=== PATIENT | female | born 1935 | race Caucasian/White ===

== ENCOUNTER 2017-07-24 21:33 | Emergency (ER) | payer MEDICARE, BC ==
--- NOTE | 2017-07-24 22:03 | RAD ---
PORTABLE CHEST: 07/24/17 HISTORY: Weakness. COMPARISON: 07/30/16. Cardiomegaly. Mild vascular engorgement. No confluent infiltrate or consolidation. There may be small effusions present. IMPRESSION: Cardiomegaly and mild vascular congestion. POS: [facility]
[2017-07-24 22:05] LABS: #Lymphocytes 1.4 thou/uL (1.20-3.40); #Monocytes 0.8 thou/uL (0.11-0.59); #Neutrophils 7.9 thou/uL (1.40-6.50); %Basophils 0.1 % (0.0-1.0); %Eosinophils 0.3 % (0.0-10.0); %Lymphocytes 13.7 % (21.0-51.0); %Monocytes 7.6 % (0.0-10.0); %Neutrophils 78.3 % (42.0-75.0); Hemoglobin 10.4 g/dL (12.0-16.0); Mean Corpuscular Hemoglobin 33.2 pg (27.0-31.0); Mean Platelet Volume 7.4 fL (7.4-10.4); Platelet Count 383 thou/uL (130-400); RBC Distribution Width 12.3 % (11.5-14.5); Red Blood Cell (RBC) Count 3.13 mill/uL (4.20-5.40); White Blood Cell (WBC) Count 10.1 thou/uL (4.8-10.8)
[2017-07-24 22:31] LABS: ALT (SGPT) 16 U/L (8-55); AST (SGOT) 22 U/L (5-34); Albumin 3.5 g/dL (3.4-4.8); Alkaline Phosphatase 106 U/L (40-150); Anion Gap 17 mmol/L (10-20); BUN (Urea Nitrogen) 49 mg/dL (9.8-20.1); Bilirubin, Total 0.7 mg/dL (0.2-1.2); Calc. Creatinine Clearance 0 mL/min (70-130); Calcium 10.1 mg/dL (7.8-10.44); Carbon Dioxide 22 mmol/L (23-31); Chloride 104 mmol/L (98-107); Estimated GFR-MDRD 33; Globulin 4.3 g/dL (2.4-3.5); Glucose 111 mg/dL (83-110); Protein, Total 7.8 g/dL (6.0-8.3); Sodium 138 mmol/L (136-145)
[2017-07-24] MEDS ORDERED: Acetaminophen 500 MG TAB ONE (23:21)
[2017-07-24 23:38] LABS: Bilirubin Negative (Negative); Blood, Urine Large (Negative); Clarity CLOUDY (Clear); Glucose, Urine (Dipstick) Negative (Negative); Leukocyte Large (Negative); Nitrite Negative (Negative); Protein, Urine (Dipstick) Trace mg/dL (Neg-Trace); Specific Gravity, Urine 1.016 (1.002-1.036); Urobilinogen 0.2 mg/dL (0.2-1.0); pH, Urine 7.5 (5.0-9.0)
[2017-07-24 23:40] LABS: Bacteria/HPF 4+ HPF (None Seen); Hyaline Casts/LPF 4-6 HYALINE CAST LPF (0-3 Hyaline); Pathc Cast-AUWi Flag 0.13 (0-2.49); RBC/HPF 21-50 HPF (0-3); Squamous Epithelial None Seen HPF (0-3)
[2017-07-25] MEDS ORDERED: cefTRIAXone\\ROCEPHIN 2 GM in Sodium Chloride 0.9% 100 ML IVPB SCH (00:30)
--- NOTE | 2017-07-28 11:45 | EKG ---
Test Reason : AMS Blood Pressure : / mmHG Vent. Rate : 089 BPM Atrial Rate : 089 BPM P-R Int : 166 ms QRS Dur : 082 ms QT Int : 376 ms P-R-T Axes : 064 000 065 degrees QTc Int : 457 ms Sinus rhythm with frequent Premature ventricular complexes Minimal voltage criteria for LVH, may be normal variant Nonspecific ST abnormality Abnormal ECG Confirmed by ZULAY RODRIGUEZ, KERRI Casiano ([id number]), newspaper copy editor LAVINIA CORDOBA ([id number]) on 07/28/2017 11:44:30 AM Referred By: Confirmed By:KERRI BISWAS MD
== END 2017-07-25 02:07 | disposition home or self-care (01) ==
LOC: ERS 21:33
DX: N39.0 Urinary tract infection, site not specified (principal); I25.10 Atherosclerotic heart disease of native coronary artery without angina pectoris; E66.9 Obesity, unspecified; I11.0 Hypertensive heart disease with heart failure; I50.9 Heart failure, unspecified; E78.5 Hyperlipidemia, unspecified; F41.9 Anxiety disorder, unspecified; F32.9 Major depressive disorder, single episode, unspecified; Z79.899 Other long term (current) drug therapy; Z79.82 Long term (current) use of aspirin
CPT/HCPCS: 51701; 71045; 80053; 81003; 81015; 83605; 83880; 85025; 87040; 87077; 87086; 87186; 93005; 94760; 96361; 96365; A4353; J0696; J7050

== ENCOUNTER 2018-09-15 01:14 | Observation (INO) | payer MEDICARE, BC ==
[2018-09-15 01:57] LABS: #Eosinphils 0.4 thou/uL (0.0-0.7); #Lymphocytes 2.4 thou/uL (1.20-3.40); #Monocytes 0.6 thou/uL (0.11-0.59); #Neutrophils 2.8 thou/uL (1.40-6.50); %Basophils 0.5 % (0.0-1.0); %Eosinophils 6.2 % (0.0-10.0); %Lymphocytes 38.6 % (21.0-51.0); %Monocytes 10.3 % (0.0-10.0); %Neutrophils 44.4 % (42.0-75.0); Hemoglobin 12.5 g/dL (12.0-16.0); Mean Corpuscular HGB CONC 33.2 g/dL (32.0-36.0); Mean Corpuscular Hemoglobin 34.5 pg (27.0-31.0); Mean Platelet Volume 8.7 fL (7.4-10.4); Platelet Count 204 thou/uL (130-400); RBC Distribution Width 12.3 % (11.5-14.5); Red Blood Cell (RBC) Count 3.61 mill/uL (4.20-5.40); White Blood Cell (WBC) Count 6.2 thou/uL (4.8-10.8)
[2018-09-15 02:03] LABS: PTT 28.6 SEC (22.9-36.1)
[2018-09-15 02:10] LABS: INR-International Normal Ratio 1.3
[2018-09-15] MEDS ORDERED: Acetaminophen 500 MG TAB ONE (02:19)
[2018-09-15 02:20] LABS: ALT (SGPT) 10 U/L (8-55); AST (SGOT) 15 U/L (5-34); Albumin 3.8 g/dL (3.4-4.8); Alkaline Phosphatase 73 U/L (40-150); Anion Gap 15 mmol/L (10-20); BUN (Urea Nitrogen) 28 mg/dL (9.8-20.1); Bilirubin, Total 0.6 mg/dL (0.2-1.2); Calc. Creatinine Clearance 0 mL/min (70-130); Calcium 10.3 mg/dL (7.8-10.44); Carbon Dioxide 22 mmol/L (23-31); Chloride 112 mmol/L (98-107); Estimated GFR-MDRD 52; Globulin 3.3 g/dL (2.4-3.5); Glucose 117 mg/dL (83-110); Potassium 4.4 mmol/L (3.5-5.1); Protein, Total 7.1 g/dL (6.0-8.3); Sodium 145 mmol/L (136-145)
[2018-09-15] MEDS ORDERED: Morphine 2 MG/ML SYRINGE SLOW IVP PRN (03:59)
[2018-09-15] MEDS: traMADol HCl 50 MG TAB PO PRN ×2 (04:46→10:45)
[2018-09-15] MEDS: Levothyroxine Sodium 100 MCG TAB PO SCH (04:46)
--- NOTE | 2018-09-15 06:27 | HP ---
CHIEF COMPLAINT: Presyncope and head injury. HISTORY OF PRESENT ILLNESS: Ms. Tompkins is a very pleasant 83-year-old woman, who presents to the ED after having a fall. The patient states she was attempting to get out of bed. She mobilizes with a wheelchair but is able to transfer from the bed to the wheelchair by standing. The patient states she stood too quickly and felt disoriented/lightheaded, causing her to fall forward, hitting the left side of her face on the floor. She denies any loss of consciousness. Denies having any chest pain or shortness of breath prior to falling. She is on Eliquis and has developed a large hematoma over her left forehead and eyebrow that is very tender. The patient has had no vision disturbances. She has headache, which she rates at 7/10. She does suffer from headaches at baseline. Denies any visual or speech disturbances. No dizziness at present. Imaging done in the ER included a brain CT, pelvic x-ray, and CT of the pelvis. The patient states she did not experience any hip pain at any point, and per Dr. Burns, there is no evidence of a fracture on her scans. Final report pending. CT of the brain apparently may have shown a small area concerning for subdural hematoma; however, this was reviewed with Neuro and it appears was clear. She was advised a repeat CT scan within 6 hours. REVIEW OF SYSTEMS: The patient denies having any recent fevers, chills, or sweats. No cough or hemoptysis. No nausea or vomiting. No abdominal pain or cramping. No changes with her bowels or urinary symptoms. PAST MEDICAL HISTORY: 1. Obesity. 2. CHF. 3. Coronary artery disease. 4. Atrial fibrillation. 5. Hyperlipidemia. 6. Hypertension. 7. Anxiety. 8. Depression. PAST SURGICAL HISTORY: 1. Hernia repair. 2. Splenectomy. 3. Appendectomy. 4. Hysterectomy. SOCIAL HISTORY: The patient denies any heavy alcohol use. Denies any smoking or illicit drug use. ALLERGIES: 1. HYDROCODONE. 2. SULFA. CURRENT MEDICATIONS: 1. Eliquis. 2. Lasix. 3. Ranexa. 4. Allopurinol. 5. Aspirin. 6. Carvedilol. 7. Centrum Silver. 8. Fosamax. 9. Levothyroxine. 10. Pravastatin. 11. Sertraline. 12. Zolpidem. 13. Potassium chloride. 14. Macrobid. PHYSICAL EXAMINATION: GENERAL: The patient is in no acute distress. She is resting comfortably. HEENT: Notable for a large hematoma overlying the left forehead and extending to her eyebrow. Normal extraocular movements without any associated pain. No blurred vision or diplopia. Facial sensation normal. NECK: Supple. No cervical spine tenderness. CARDIAC: Regular rate and rhythm. LUNGS: Clear to auscultation. ABDOMEN: Soft, obese, nontender, nondistended. Normoactive bowel sounds present. No guarding or rigidity. EXTREMITIES: Lower leg swelling, which is chronic. No edema. SKIN: Warm and dry. LABORATORY DATA: White blood count 6.2, hemoglobin 12.5, hematocrit 37.6, and platelets 204. PT 16, INR 1.3, and PTT 28.6. Sodium 145, potassium 4.4, chloride 112, carbon dioxide 22, anion gap 15, BUN 28, creatinine 1.01, GFR 52, glucose 117, calcium 10.3, total bilirubin 0.6, AST 15, ALT 10, and albumin 3.8. IMAGING DATA: No reports available yet as mentioned above in HPI. IMPRESSION AND PLAN: Ms. Tompkins is a very pleasant 83-year-old woman, who is being admitted for management of the following; 1. Head injury. The patient on Eliquis. Had no loss of consciousness, but with a large hematoma over the left forehead/eyebrow. Per Dr. Burns, imaging reviewed with Neuro and no clear evidence of any hematoma. However, they did advise a repeat CT of brain within 6 hours of the first one. We will continue neuro checks every 2 hours. Neuro following. 2. Presyncope. The patient states that she became lightheaded, when she stood up to transfer to a wheelchair. She states this does tend to happen when she gets up too quickly. We will obtain orthostatic blood pressures. We will add on magnesium and thyroid with morning labs. We will obtain urinalysis. The patient has no other associated symptoms. Day Team to decide if any further investigations warranted. No neuro deficits or vertigo. 3. Hypothyroidism. Resume home medications. 4. Hypertension. Resume home medications and monitor blood pressure. 5. Hyperlipidemia. Resume home medications. 6. Congestive heart failure. Resume home medications. Add on a BNP. 7. Gastrointestinal prophylaxis. 8. Deep venous thrombosis prophylaxis with mechanical SCDs. 9. Full code status. The patient's case to be discussed with attending for further recommendations. Job ID: [id number]
--- NOTE | 2018-09-15 07:32 | CT ---
CT brain. HISTORY: Trauma with history of small focal area of intracranial hemorrhage. Noncontrast enhanced CT images of the brain is obtained on 09/15/2018. Comparison made to previous CT from earlier in the day. CT brain demonstrates a large left frontal and periorbital scalp hematoma. No evidence of acute intracranial masses hemorrhages or strokes seen. The tiny 3 mm area of hyperdensity compatible with tiny area of hemorrhage seen on previous CT axial image #19 is no longer visible. This likely subarachnoid area of hemorrhage may have dissipated. No evidence of increasing hemorrhage seen. No other acute intracranial abnormalities or contusion seen. No evidence of calvarial fracture seen. IMPRESSION: no evidence of significant active intracranial hemorrhage or abnormality seen.
--- NOTE | 2018-09-15 08:01 | CT ---
PRELIMINARY REPORT/[facility]/EMERGENCY AFTER HOURS PROCEDURE: EXAM: CT Head Without Contrast EXAM DATE/TIME: 09/15/2018 1:58 AM CLINICAL HISTORY: 83 years old, female; Injury or trauma; Fall; Initial encounter; Abrasion; Forehead; Patient HX: Er 3 . Fell forward out of wheelchair, hit head, denies loc TECHNIQUE: Imaging protocol: Axial computed tomography images of the head/brain without contrast. COMPARISON: No relevant prior studies available. FINDINGS: Brain: Volume loss and chronic small vessel ischemic change. There is what appears to be a 3 mm extra-axial hyperdensity at the anterior aspect of the left frontal lobe on image 19, series 2 which is most likely volume averaging subjacent to the left frontal skull which overlaps on image 20, series 2 . Without coronal/sagittal images, small extra-axial hemorrhage cannot be absolutely excluded but is unlikely. No brain edema. Ventricles: Normal. No ventriculomegaly. Bones/joints: Unremarkable. No acute fracture. Sinuses: Visualized sinuses are unremarkable. No acute sinusitis. Mastoid air cells: Visualized mastoid air cells are unremarkable. No mastoid effusion. Soft tissues: Large left frontal scalp hematoma. Other findings: Prior right mastectomy. IMPRESSION: There is what appears to be a 3 mm extra-axial hyperdensity at the anterior aspect of the left fronta l lobe on image 19, series 2 which is most likely volume averaging subjacent to the left frontal skull which overlaps on image 20, series 2. Without coronal/sagittal images, small extra-axial hemorrhage cannot be absolutely excluded but is unlikely. Thank you for allowing us to participate in the care of your patient. Dictated and Authenticated by: Eren Do MD 09/15/2018 2:15 AM Central Time ([place] & [place]) FINAL REPORT EMERGENCY AFTER HOURS CT BRAIN: HISTORY: Fall. FINDINGS/IMPRESSION: This is the final report. Preliminary exam was performed by [facility]. A large left periorbital hematoma seen. There is a tiny subarachnoid frontal area of hemorrhage axial image #19. This was not present on the patient's previous CT from 05/01/2014. No other acute abnormality seen. I concur with the dictation for [facility]. Transcribed Date/Time: 09/15/2018 8:23 AM
--- NOTE | 2018-09-15 08:11 | RAD ---
AP view pelvis. HISTORY: Fall. AP view pelvis is obtained. There is an aortic stent graft in place. The pelvis is unremarkable. No evidence of pelvic fractures, subluxations or bony lesions seen. IMPRESSION: Unremarkable AP view pelvis with no evidence of bony fracture seen.
--- NOTE | 2018-09-15 08:30 | CT ---
PRELIMINARY REPORT/[facility]/EMERGENCY AFTER HOURS PROCEDURE: EXAM: CT Pelvis Without Contrast, Skeletal EXAM DATE/TIME: 09/15/2018 2:43 AM CLINICAL HISTORY: 83 years old, female; Injury or trauma; Initial encounter; Abrasion; Bilateral; Hip; Patient HX: 83 y /o F presents to ED via EMS transport S/P fall. PT reports she fell when she was attempting to get to the bathroom TECHNIQUE: Imaging protocol: Axial computed tomography images of the pelvis without intravenous contrast. Exam focused on the skeletal structures. Coronal and sagittal reformatted images were created and reviewed. COMPARISON: No relevant prior studies available. FINDINGS: Stomach and bowel: Colonic diverticulosis. No diverticulitis. Appendix: Normal appendix. Reproductive: Prior hysterectomy. Bones/joints: No fracture. Soft tissues: Unremarkable. Other findings: Myositis ossifications adjacent to the right femoral head. IMPRESSION: No fracture. Thank you for allowing us to participate in the care of your patient. Dictated and Authenticated by: Eren Do MD 09/15/2018 3:10 AM Central Time ([place] & [place]) FINAL REPORT EMERGENCY AFTER HOURS CT PELVIS: This is the final report. Preliminary exam was performed by [facility]. FINDINGS: Aorto biiliac stents in place. Multilevel lumbar facet degenerative changes seen. No evidence of acut e pelvic fractures seen. Some areas of myositis ossificans seen medial and inferior to the right hip joint. IMPRESSION: No evidence of acute pelvic fractures. I concur with the dictation from [facility]. Transcribed Date/Time: 09/15/2018 8:34 AM
[2018-09-15] MEDS: Amiodarone 200 MG TAB PO SCH ×2 (08:36→20:52)
[2018-09-15] MEDS: Furosemide 40 MG TAB PO SCH (08:36)
[2018-09-15] MEDS: Allopurinol 100 MG TAB PO SCH (08:36)
[2018-09-15] MEDS: Sacubitril 49 MG/Valsartan 51 MG TABLET PO SCH ×2 (08:37→20:51)
[2018-09-15 12:09] LABS: Bilirubin Negative (Negative); Blood, Urine Negative (Negative); Clarity CLOUDY (Clear); Glucose, Urine (Dipstick) Negative (Negative); Leukocyte Small (Negative); Nitrite Positive (Negative); Protein, Urine (Dipstick) Negative (Neg-Trace); Specific Gravity, Urine 1.021 (1.002-1.036); Urobilinogen 0.2 mg/dL (0.2-1.0); pH, Urine 5.5 (5.0-9.0)
[2018-09-15 12:12] LABS: Bacteria/HPF 4+ HPF (None Seen); Hyaline Casts/LPF 0-3 HYALINE CAST LPF (0-3 Hyaline); Pathc Cast-AUWi Flag 0.16 (0-2.49); Squamous Epithelial 0-3 HPF (0-3); WBC/HPF 21-50 HPF (0-3)
[2018-09-15 12:17] LABS: Urine Culture Reflex Yes Yes
--- NOTE | 2018-09-15 12:41 | PRG ---
DATE OF SERVICE: 09/15/2018 SUBJECTIVE: This is a 30-minute initial visit note, in which 30 minutes were spent reviewing the imaging, record, evaluation, examination of the patient, formulation of plan. Greater than 50% time was spent in counseling on Sandi Tompkins. Ms. Tompkins is an 83-year-old woman, who fell. She is on aspirin and Eliquis. She sustained a traumatic subarachnoid hemorrhage. This improved on followup head CT. I have asked that she lay off her aspirin and Eliquis for the next two weeks. We will arrange a followup in my clinic with head CT. She is neurologically intact and has left-sided facial and periorbital ecchymoses, which will heal with time. DIAGNOSIS: Traumatic intracranial bleed status post fall on blood thinners. Job ID: [id number]
--- NOTE | 2018-09-15 13:15 | PDOC.PN ---
- Subjective Encounter Start Date: 09/15/18 Encounter Start Time: 13:05 Subjective: f/u for fall with head injury and traumatic subarachnoid hemorrhage -: conservatively managed. Repeat CT brain showing resolving hemorrhage. -: Feel tired and sore. No N/V. No unilateral weakness. - Objective MAR Reviewed: Yes Vital Signs & Weight: Vital Signs (12 hours) Temp Pulse Resp BP BP BP BP 09/15/18 11:59 179/79 H 182/103 H 163/72 H 09/15/18 11:26 97.6 F 54 L 18 09/15/18 07:46 97.6 F 63 18 166/68 H 09/15/18 03:46 97.3 F L 63 20 141/65 H Pulse Ox 09/15/18 11:59 09/15/18 11:26 94 L 09/15/18 07:46 95 09/15/18 03:46 96 Weight Weight 243 lb I&O: 09/14/18 09/15/18 09/16/18 06:59 06:59 06:59 Intake Total 100 Balance 100 Result Diagrams: 09/15/18 01:48 09/15/18 01:48 Additional Labs: Microbiology 07/09/16 05:06 Urine Straight Catheter Urine Culture - Preliminary Gram Negative Calderon Proteus species Laboratory Tests 07/09/16 07/09/16 07/10/16 03:29 03:29 05:05 Hgb 11.2 L Hct 33.1 L MCV 103.0 H BUN 59 H Creatinine 2.35 H Magnesium B-Natriuretic Peptide Vitamin B12 783 Folate 16.00 TSH 3rd Generation 09/15/18 09/15/18 09/15/18 01:48 01:48 01:48 Hgb Hct MCV BUN Creatinine Magnesium 2.0 B-Natriuretic Peptide 523.5 H Vitamin B12 Folate TSH 3rd Generation [phone] Radiology Reviewed by me: Yes (CT brain - resolving SAH) EKG Reviewed by me: Yes (Tele - SR) Phys Exam - Physical Examination Constitutional: NAD smiling, alert L periorbital ecchymosis, edema and with abrasion, laceration L forehead HEENT: PERRLA, sclera anicteric, oral pharynx no lesions Neck: no nodes, no JVD, supple, full ROM Respiratory: no wheezing, no rales, no rhonchi, clear to auscultation bilateral S1, S2 Cardiovascular: RRR, no significant murmur, no rub, gallop Gastrointestinal: soft, non-tender, no distention, positive bowel sounds Musculoskeletal: no edema, pulses present Neurological: normal sensation, moves all 4 limbs Psychiatric: A&O x 3 Skin: normal turgor, cap refill <2 seconds Dx/Plan (1) Subarachnoid hemorrhage Code(s): I60.9 - NONTRAUMATIC SUBARACHNOID HEMORRHAGE, UNSPECIFIED Status: Acute Comment: Resolving by repeat CT imagaing, avoid anticoagulation/ASA x 2 weeks (2) Closed head injury Code(s): S09.90XA - UNSPECIFIED INJURY OF HEAD, INITIAL ENCOUNTER Status: Acute Comment: Supportive mgmt, PT for mobilization (3) Fall Code(s): W19.XXXA - UNSPECIFIED FALL, INITIAL ENCOUNTER Status: Acute Comment: No LOC, PT for mobilization, ? 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
[2018-09-15] MEDS ORDERED: Cefdinir 300 MG CAP PO SCH (14:00)
[2018-09-15] MEDS: Cefdinir 300 MG CAP PO SCH (20:52)
[2018-09-15] MEDS ORDERED: Atorvastatin Calcium 20 MG TAB PO SCH (21:00)
[2018-09-15 23:54] VITALS: BMI 37.5
[2018-09-16] MEDS: traMADol HCl 50 MG TAB PO PRN (01:55)
[2018-09-16] MEDS: Levothyroxine Sodium 100 MCG TAB PO SCH (03:48)
[2018-09-16] MEDS: Cefdinir 300 MG CAP PO SCH (08:18)
[2018-09-16] MEDS: Amiodarone 200 MG TAB PO SCH (08:18)
[2018-09-16] MEDS: Sacubitril 49 MG/Valsartan 51 MG TABLET PO SCH (08:18)
[2018-09-16] MEDS: Furosemide 40 MG TAB PO SCH (08:18)
[2018-09-16] MEDS: Allopurinol 100 MG TAB PO SCH (08:18)
[2018-09-16 12:34] VITALS: TEMP 97.9
--- NOTE | 2018-09-17 06:01 | SS ---
DATE OF ADMISSION: 09/15/2018 DATE OF DISCHARGE: 09/16/2018 PRIMARY CARE PHYSICIAN: Dr. Obregon. SOAP DRIER OPERATOR: Dr. Robertson. PROCEDURES: The patient had a brain CT, which showed a large left periorbital hematoma, tiny subarachnoid frontal area hemorrhage, axial image #19. This is new from CT on 05/01/2014. No other acute abnormality is seen. The patient had a pelvis x-ray, unremarkable AP view of the pelvis with no evidence of bony fracture. CT pelvis showed [id number] stents in place, multilevel lumbar facet degenerative changes seen. No evidence of acute pelvic fractures. Some areas of myositis ossificans noted medial and inferior to the right hip joint. Subsequent brain CT 6 hours after the initial one shows no evidence of significant active intracranial hemorrhage or abnormality. The tiny area of hemorrhage was seen on previous CT scan, axial image #19, this number is no longer visible, likely subarachnoid area of hemorrhage may have dissipated. HOSPITAL COURSE: Ms. Tompkins is an 83-year-old female, who reported to the emergency room after having a fall. The patient states that she was trying to get up from her recliner. Reports that she does this particular maneuver several times per day, but this particular time she got up, tried to pivot to get into her wheelchair to go to the bathroom, fell backwards. She said the next thing she remembers was she was lying on the floor. She denies any loss of consciousness. Denies having any chest pain or shortness of breath prior to the fall. The patient is on Eliquis and has developed a large hematoma over her left forehead and eyebrow, which is very tender. Denies any visual disturbances. She does have a headache. CT findings as above. The patient was admitted for observation based on the small hemorrhage that was seen on the initial CT scan. The patient's home medications were held. Dr. Robertson saw the patient, asked that we hold her aspirin and Eliquis for the next 2 weeks. Follow up in his clinic for another head CT. Case Management arranged home health physical therapy for the patient. The patient was found to have UTI. The patient was started on Omnicef and was continued at discharge. Once home health arranged by Case Management, patient requested to go home. The patient was subsequently discharged. REVIEW OF SYSTEMS: The patient does report some mild facial pain on the left side, has significant bruising to the left side of her forehead. She denies any chest pain, shortness of breath, palpitations, or abdominal pain. All other systems are reviewed and are negative unless mentioned in the hospital course. PHYSICAL EXAMINATION: VITAL SIGNS: Temperature is 98, pulse is 66, respirations 16, the patient is 96% on room air, blood pressure is 148/67. CONSTITUTIONAL: The patient appears nontoxic. She is alert and oriented to person, place, and time. HEENT: Head, hematoma to the left frontal scalp. She has a hematoma noted to her left forehead, left eyelid is swollen. She has ecchymosis left forehead periorbital, some mild ecchymosis to the right periorbital area. Extraocular muscles are intact. ENT, mouth exam is normal. Mucous membranes are moist. NECK: Normal range of motion. Trachea is midline. RESPIRATORY: Breath sounds are clear. No wheezing. No rales. Chest movement is symmetrical. CARDIOVASCULAR: Regular heart rate and rhythm. Heart sounds are normal. ABDOMEN: Soft, nontender. EXTREMITIES: Upper extremity; motor strength is normal, sensation intact, radial pulses are normal. Lower extremity; normal range of motion, motor strength is normal, sensation intact, no edema is noted, pedal pulses equal bilaterally. NEUROLOGIC: The patient is oriented to person, place, and time. Speech is normal. SKIN: Ecchymosis and swelling to the left forehead, orbital area, left eyelid, otherwise normal, dry in color. DISCHARGE DIAGNOSES: 1. Subarachnoid hemorrhage, improving. 2. Closed head injury. 3. Fall. 4. Urinary tract infection. 5. Chronic kidney disease, stage 3. 6. Chronic anticoagulation. 7. Physical deconditioning. ALLERGIES: HYDROCODONE, SULFA. HOME MEDICATIONS: 1. Allopurinol 100 mg p.o. daily. 2. Amiodarone 200 mg p.o. b.i.d. 3. Lasix 40 mg p.o. daily. 4. Levothyroxine 100 mcg p.o. daily. 5. Multivitamins one tablet p.o. daily. 6. K-Dur 20 mEq p.o. daily. 7. Pravachol 80 mg p.o. h.s. 8. Ranexa 500 mg p.o. b.i.d. 9. Entresto one tab p.o. b.i.d. 10. Sertraline 50 mg p.o. daily. 11. We added on this visit cefdinir 300 mg p.o. b.i.d. x10 for 5 days worth. CONDITION: Patient condition is stable. DISPOSITION: The patient will be discharged home. Home health has been requested. FOLLOWUP: The patient should follow up with Dr. Obregon within 1 week, Dr. Robertson in the next 2 to 3 weeks. The patient should stop the Eliquis and the aspirin for 2 weeks and should follow up with Dr. Robertson to ensure the subarachnoid hemorrhage has completely resolved. Job ID: [id number]
[2018-09-18 06:51] VITALS: BP 144/68
== END 2018-09-16 15:52 | disposition home or self-care (01) ==
LOC: ERS 01:14 → 2SW 03:22
PROVIDERS: ADMIT Internal Medicine; ATTEND Internal Medicine
DX: S06.6X0A Traumatic subarachnoid hemorrhage without loss of consciousness, initial encounter (principal); R55 Syncope and collapse; I11.0 Hypertensive heart disease with heart failure; I50.9 Heart failure, unspecified; I25.10 Atherosclerotic heart disease of native coronary artery without angina pectoris; I48.91 Unspecified atrial fibrillation; E78.5 Hyperlipidemia, unspecified; E03.9 Hypothyroidism, unspecified; F41.9 Anxiety disorder, unspecified; F32.9 Major depressive disorder, single episode, unspecified; E66.9 Obesity, unspecified; N39.0 Urinary tract infection, site not specified; R53.81 Other malaise; Z68.37 Body mass index [BMI] 37.0-37.9, adult; Z88.2 Allergy status to sulfonamides; Z88.5 Allergy status to narcotic agent; Z87.01 Personal history of pneumonia (recurrent); Z79.82 Long term (current) use of aspirin; Z79.899 Other long term (current) drug therapy; W18.30XA Fall on same level, unspecified, initial encounter
CPT/HCPCS: 70450; 72170; 72192; 81001; 83735; 83880; 85610; 85730; 87077; 87086; 87186; 97139; 97530; 99285; G0378 ×2; 36415; 80053; 84443; 85025; J2270

== ENCOUNTER 2021-09-28 08:28 | Emergency (ER) | payer MEDICARE, BC ==
[2021-09-28] MEDS ORDERED: Acetaminophen 500 MG TAB ONE (09:17)
== END 2021-09-28 10:15 | disposition home or self-care (01) ==
LOC: ERS 08:28
DX: S92.334A Nondisplaced fracture of third metatarsal bone, right foot, initial encounter for closed fracture (principal); S80.01XA Contusion of right knee, initial encounter; W19.XXXA Unspecified fall, initial encounter; E66.9 Obesity, unspecified; I11.0 Hypertensive heart disease with heart failure; I50.9 Heart failure, unspecified; I25.10 Atherosclerotic heart disease of native coronary artery without angina pectoris; E78.5 Hyperlipidemia, unspecified; Z79.01 Long term (current) use of anticoagulants; Z79.899 Other long term (current) drug therapy
CPT/HCPCS: 93005

== ENCOUNTER 2021-09-29 10:10 | Inpatient (IN) | payer MEDICARE, BC ==
[2021-09-29] MEDS ORDERED: Ondansetron PF 4 MG/2 ML Vial ONE ×2 (12:28→18:48)
[2021-09-29] MEDS ORDERED: Fentanyl 100 MCG/2 ML VIAL ONE (13:35)
[2021-09-29 15:39] LABS: #Basophils 0.1 thou/uL (0.0-0.2); #Eosinphils 0.1 thou/uL (0.0-0.7); #Lymphocytes 1.9 thou/uL (1.20-3.40); #Monocytes 0.8 thou/uL (0.11-0.59); #Neutrophils 6.3 thou/uL (1.40-6.50); %Basophils 0.6 % (0.0-1.0); %Eosinophils 0.7 % (0.0-10.0); %Lymphocytes 21.1 % (21.0-51.0); %Monocytes 9.1 % (0.0-10.0); %Neutrophils 68.5 % (42.0-75.0); Hemoglobin 13.1 g/dL (12.0-16.0); Mean Corpuscular HGB CONC 31.9 g/dL (32.0-36.0); Mean Corpuscular Hemoglobin 35.3 pg (27.0-31.0); Platelet Count 251 thou/uL (130-400); RBC Distribution Width 12.3 % (11.5-14.5); Red Blood Cell (RBC) Count 3.71 mill/uL (4.20-5.40); White Blood Cell (WBC) Count 9.2 thou/uL (4.8-10.8)
[2021-09-29 15:52] LABS: MDiff Complete? YES; Macrocytosis MODERATE=16-30 cells (100X) (0-5/hpf); Platelet Morphology Comment Appears Adequate; Polychromasia SLIGHT = 2-3 cells (100X) (0-2/hpf); Target Cells SLIGHT = 2-5 cells (100X) (0-1/hpf)
[2021-09-29 16:00] LABS: ALT (SGPT) 11 U/L (8-55); AST (SGOT) 19 U/L (5-34); Albumin 3.7 g/dL (3.4-4.8); Alkaline Phosphatase 77 U/L (40-110); Anion Gap 15 mmol/L (10-20); BUN (Urea Nitrogen) 17 mg/dL (9.8-20.1); Calc. Creatinine Clearance 0 mL/min (70-130); Calcium 10.4 mg/dL (7.8-10.44); Carbon Dioxide 21 mmol/L (23-31); Chloride 111 mmol/L (98-107); Globulin 3.6 g/dL (2.4-3.5); Glucose 105 mg/dL (83-110); Potassium 4.5 mmol/L (3.5-5.1); Protein, Total 7.3 g/dL (5.8-8.1); Sodium 142 mmol/L (136-145)
[2021-09-29] MEDS ORDERED: Morphine 4 MG/ML VIAL ONE (18:48)
[2021-09-29] MEDS ORDERED: Diltiazem HCl 125 MG in Premix Bag 1 BAG IVPB SCH (20:00)
[2021-09-29 23:27] VITALS: BMI 35.4
[2021-09-29] MEDS ORDERED: Morphine 4 MG/ML VIAL SLOW IVP PRN (23:39)
[2021-09-29] MEDS ORDERED: Ondansetron ODT 4 MG TAB SL PRN (23:45)
[2021-09-29] MEDS ORDERED: Ondansetron PF 4 MG/2 ML Vial IVP PRN (23:45)
[2021-09-29] MEDS ORDERED: Fentanyl 100 MCG/2 ML VIAL SLOW IVP SCH (23:45)
[2021-09-29] MEDS ORDERED: Acetaminophen 325 MG TAB PO PRN (23:45)
[2021-09-30] MEDS ORDERED: Nitroglycerin 0.4 MG TAB (25 Tab Bottle) SL PRN (02:25)
[2021-09-30 04:18] LABS: Cardiac Risk 3.6 (Less than 4.5)
[2021-09-30] MEDS: Levothyroxine Sodium 100 MCG TAB PO SCH (05:29)
[2021-09-30] MEDS: Allopurinol 100 MG TAB PO SCH (07:35)
[2021-09-30] MEDS: Carvedilol 6.25 MG TAB PO SCH ×2 (07:36→21:26)
[2021-09-30] MEDS: Furosemide 40 MG TAB PO SCH (07:36)
[2021-09-30] MEDS ORDERED: Fentanyl 100 MCG/2 ML VIAL SLOW IVP PRN (09:22)
[2021-09-30] MEDS: traMADol HCl 50 MG TAB PO PRN ×2 (09:59→19:45)
[2021-09-30] MEDS: Empagliflozin 25 MG TAB PO SCH (09:59)
[2021-09-30] MEDS: cycloSPORINE 0.05% Ophthalmic Droperette EA EYE SCH ×2 (09:59→21:27)
[2021-09-30 11:59] LABS: SARS-CoV-2 PCR by NAA Not Detected (NotDetected)
[2021-09-30] MEDS ORDERED: Dextrose 50% Abboject 50 ML SYRINGE SLOW IVP PRN (14:27)
[2021-09-30] MEDS ORDERED: HumaLOG 300 UNITS/3 ML VIAL SC PRN (14:27)
[2021-09-30] MEDS ORDERED: Dextrose 5% in Water 1,000 ML IV PRN (14:27)
[2021-09-30] MEDS ORDERED: Rosuvastatin 10 MG TAB PO SCH (21:00)
[2021-09-30] MEDS: Sotalol HCl 80 MG TAB PO SCH (21:26)
[2021-09-30] MEDS: traZODone HCl 50 MG TAB PO SCH (21:26)
[2021-09-30] MEDS: Rosuvastatin 20 MG TAB PO SCH (21:26)
[2021-10-01 04:53] LABS: Free T4 (Free Thyroxine) 1.03 ng/dL (0.70-1.48); Thyroid Stimulating Hormone 1.3647 uIU/mL (0.35-4.94)
[2021-10-01] MEDS: Levothyroxine Sodium 100 MCG TAB PO SCH (05:22)
[2021-10-01] MEDS: traMADol HCl 50 MG TAB PO PRN ×2 (05:27→22:32)
[2021-10-01] MEDS: Carvedilol 6.25 MG TAB PO SCH ×2 (10:21→22:33)
[2021-10-01] MEDS: Furosemide 40 MG TAB PO SCH (10:21)
[2021-10-01] MEDS: Empagliflozin 25 MG TAB PO SCH (10:21)
[2021-10-01] MEDS: Allopurinol 100 MG TAB PO SCH (10:21)
[2021-10-01] MEDS: cycloSPORINE 0.05% Ophthalmic Droperette EA EYE SCH ×2 (10:21→22:36)
[2021-10-01] MEDS: Sotalol HCl 80 MG TAB PO SCH ×2 (10:22→22:34)
[2021-10-01] MEDS ORDERED: Furosemide 20 MG/2 ML VIAL SLOW IVP SCH (16:15)
[2021-10-01] MEDS ORDERED: Diltiazem 125 MG in Sodium Chloride 0.9% 100 ML IVPB SCH (16:30)
[2021-10-01] MEDS ORDERED: Bisacodyl 5 MG TAB PO SCH (17:15)
[2021-10-01] MEDS: Rosuvastatin 20 MG TAB PO SCH (22:33)
[2021-10-01] MEDS: traZODone HCl 50 MG TAB PO SCH (22:35)
[2021-10-02 04:53] LABS: Hemoglobin 11.8 g/dL (12.0-16.0); Mean Corpuscular HGB CONC 32.3 g/dL (32.0-36.0); Mean Corpuscular Hemoglobin 34.8 pg (27.0-31.0); Platelet Count 240 thou/uL (130-400); RBC Distribution Width 12.2 % (11.5-14.5); Red Blood Cell (RBC) Count 3.38 mill/uL (4.20-5.40); White Blood Cell (WBC) Count 8.3 thou/uL (4.8-10.8)
[2021-10-02 04:58] LABS: Anion Gap 14 mmol/L (10-20); BUN (Urea Nitrogen) 25 mg/dL (9.8-20.1); Calc. Creatinine Clearance 67 mL/min (70-130); Calcium 9.6 mg/dL (7.8-10.44); Carbon Dioxide 24 mmol/L (23-31); Chloride 104 mmol/L (98-107); Glucose 105 mg/dL (83-110); Potassium 3.5 mmol/L (3.5-5.1); Sodium 138 mmol/L (136-145)
[2021-10-02 05:59] LABS: Eosinophils 4 % (0-10); Lymphocytes 19 % (21-51); MDiff Complete? YES; Macrocytosis SLIGHT = 6-15 cells (100X) (0-5/hpf); Monocytes 17 % (0-10); Neutrophil 60 % (42-75)
[2021-10-02] MEDS: traMADol HCl 50 MG TAB PO PRN (06:10)
[2021-10-02] MEDS: Levothyroxine Sodium 100 MCG TAB PO SCH (06:11)
[2021-10-02] MEDS: Carvedilol 6.25 MG TAB PO SCH ×2 (09:25→21:42)
[2021-10-02] MEDS: Furosemide 40 MG TAB PO SCH (09:25)
[2021-10-02] MEDS: Empagliflozin 25 MG TAB PO SCH (09:25)
[2021-10-02] MEDS: Sotalol HCl 80 MG TAB PO SCH ×2 (09:25→21:41)
[2021-10-02] MEDS: Allopurinol 100 MG TAB PO SCH (09:26)
[2021-10-02] MEDS: cycloSPORINE 0.05% Ophthalmic Droperette EA EYE SCH ×2 (10:06→21:56)
[2021-10-02] MEDS ORDERED: Ondansetron PF 4 MG/2 ML Vial IVP SCH (10:15)
[2021-10-02] MEDS: Bisacodyl 5 MG TAB PO PRN (18:37)
[2021-10-02] MEDS: traZODone HCl 50 MG TAB PO SCH (21:32)
[2021-10-02] MEDS: Rosuvastatin 20 MG TAB PO SCH (21:32)
[2021-10-03] MEDS: Levothyroxine Sodium 100 MCG TAB PO SCH (06:50)
[2021-10-03] MEDS: Carvedilol 6.25 MG TAB PO SCH ×2 (11:06→22:09)
[2021-10-03] MEDS: Allopurinol 100 MG TAB PO SCH (11:06)
[2021-10-03] MEDS: Empagliflozin 25 MG TAB PO SCH (11:06)
[2021-10-03] MEDS: cycloSPORINE 0.05% Ophthalmic Droperette EA EYE SCH ×2 (11:07→23:55)
[2021-10-03] MEDS: Sotalol HCl 80 MG TAB PO SCH ×2 (11:07→22:05)
[2021-10-03] MEDS: Furosemide 40 MG TAB PO SCH (11:07)
[2021-10-03] MEDS: Rosuvastatin 20 MG TAB PO SCH (22:43)
[2021-10-03] MEDS: traMADol HCl 50 MG TAB PO PRN (22:46)
[2021-10-03] MEDS: traZODone HCl 50 MG TAB PO SCH (22:50)
[2021-10-04] MEDS: Levothyroxine Sodium 100 MCG TAB PO SCH (06:43)
[2021-10-04] MEDS: Empagliflozin 25 MG TAB PO SCH (08:43)
[2021-10-04] MEDS: Sotalol HCl 80 MG TAB PO SCH ×2 (08:43→20:45)
[2021-10-04] MEDS: Carvedilol 6.25 MG TAB PO SCH ×2 (08:44→20:45)
[2021-10-04] MEDS: Allopurinol 100 MG TAB PO SCH (08:44)
[2021-10-04] MEDS: Furosemide 40 MG TAB PO SCH (08:44)
[2021-10-04] MEDS: cycloSPORINE 0.05% Ophthalmic Droperette EA EYE SCH ×2 (08:47→20:44)
[2021-10-04] MEDS: Bisacodyl 5 MG TAB PO PRN (08:55)
[2021-10-04] MEDS ORDERED: Ondansetron ODT 4 MG TAB PO PRN (14:47)
[2021-10-04] MEDS ORDERED: Polyethylene Glycol 3350 17 GM Packet PO SCH (15:00)
[2021-10-04] MEDS: Rosuvastatin 20 MG TAB PO SCH (20:44)
[2021-10-04] MEDS: traZODone HCl 50 MG TAB PO SCH (20:44)
[2021-10-05] MEDS: Levothyroxine Sodium 100 MCG TAB PO SCH (05:38)
[2021-10-05 07:01] LABS: Anion Gap 14 mmol/L (10-20); BUN (Urea Nitrogen) 40 mg/dL (9.8-20.1); Calc. Creatinine Clearance 54 mL/min (70-130); Calcium 9.8 mg/dL (7.8-10.44); Carbon Dioxide 27 mmol/L (23-31); Chloride 100 mmol/L (98-107); Glucose 88 mg/dL (83-110); Potassium 3.9 mmol/L (3.5-5.1); Sodium 137 mmol/L (136-145)
[2021-10-05 07:47] LABS: #Eosinphils 0.3 thou/uL (0.0-0.7); #Lymphocytes 1.3 thou/uL (1.20-3.40); #Monocytes 1.1 thou/uL (0.11-0.59); #Neutrophils 6.6 thou/uL (1.40-6.50); %Basophils 0.4 % (0.0-1.0); %Eosinophils 3.3 % (0.0-10.0); %Lymphocytes 14.3 % (21.0-51.0); %Monocytes 11.2 % (0.0-10.0); %Neutrophils 70.8 % (42.0-75.0); Hemoglobin 11.9 g/dL (12.0-16.0); MDiff Complete? YES; Macrocytosis SLIGHT = 6-15 cells (100X) (0-5/hpf); Mean Corpuscular HGB CONC 32.7 g/dL (32.0-36.0); Mean Platelet Volume 7.7 fL (7.4-10.4); Platelet Count 260 thou/uL (130-400); Platelet Morphology Comment Appears Adequate; Polychromasia SLIGHT = 2-3 cells (100X) (0-2/hpf); RBC Distribution Width 11.9 % (11.5-14.5); White Blood Cell (WBC) Count 9.3 thou/uL (4.8-10.8)
[2021-10-05] MEDS: Allopurinol 100 MG TAB PO SCH (08:42)
[2021-10-05] MEDS: Carvedilol 6.25 MG TAB PO SCH ×2 (08:43→20:15)
[2021-10-05] MEDS: Polyethylene Glycol 3350 17 GM Packet PO SCH (08:43)
[2021-10-05] MEDS: Empagliflozin 25 MG TAB PO SCH (08:43)
[2021-10-05] MEDS: cycloSPORINE 0.05% Ophthalmic Droperette EA EYE SCH ×2 (08:44→20:15)
[2021-10-05] MEDS ORDERED: Lactated Ringer's 500 ML IV SCH (08:45)
[2021-10-05] MEDS: Sotalol HCl 80 MG TAB PO SCH ×2 (08:45→20:16)
[2021-10-05] MEDS: Lactated Ringer's 1,000 ML IV SCH ×2 (18:24→20:14)
[2021-10-05] MEDS: Rosuvastatin 20 MG TAB PO SCH (20:15)
[2021-10-05] MEDS: traZODone HCl 50 MG TAB PO SCH (20:15)
[2021-10-05 20:44] VITALS: TEMP 97.9
[2021-10-06] MEDS: Levothyroxine Sodium 100 MCG TAB PO SCH (05:58)
[2021-10-06 06:54] LABS: #Eosinphils 0.3 thou/uL (0.0-0.7); #Lymphocytes 1.6 thou/uL (1.20-3.40); #Neutrophils 4.5 thou/uL (1.40-6.50); %Basophils 0.2 % (0.0-1.0); %Eosinophils 3.6 % (0.0-10.0); %Lymphocytes 21.4 % (21.0-51.0); %Monocytes 13.7 % (0.0-10.0); %Neutrophils 61.1 % (42.0-75.0); Hemoglobin 11.3 g/dL (12.0-16.0); Mean Corpuscular HGB CONC 32.2 g/dL (32.0-36.0); Mean Corpuscular Hemoglobin 34.5 pg (27.0-31.0); Mean Platelet Volume 7.5 fL (7.4-10.4); Platelet Count 269 thou/uL (130-400); RBC Distribution Width 11.9 % (11.5-14.5); Red Blood Cell (RBC) Count 3.26 mill/uL (4.20-5.40); White Blood Cell (WBC) Count 7.3 thou/uL (4.8-10.8)
[2021-10-06 07:15] LABS: Anion Gap 13 mmol/L (10-20); BUN (Urea Nitrogen) 30 mg/dL (9.8-20.1); Calc. Creatinine Clearance 70 mL/min (70-130); Calcium 9.6 mg/dL (7.8-10.44); Carbon Dioxide 26 mmol/L (23-31); Chloride 104 mmol/L (98-107); Glucose 93 mg/dL (83-110); Potassium 3.7 mmol/L (3.5-5.1); Sodium 139 mmol/L (136-145)
[2021-10-06 08:25] VITALS: BP 106/70
[2021-10-06] MEDS: Carvedilol 6.25 MG TAB PO SCH (09:17)
[2021-10-06] MEDS: Sotalol HCl 80 MG TAB PO SCH (09:18)
[2021-10-06] MEDS: Allopurinol 100 MG TAB PO SCH (09:19)
[2021-10-06] MEDS: Polyethylene Glycol 3350 17 GM Packet PO SCH (09:19)
[2021-10-06] MEDS: Empagliflozin 25 MG TAB PO SCH (09:19)
[2021-10-06] MEDS: cycloSPORINE 0.05% Ophthalmic Droperette EA EYE SCH (09:20)
[2021-10-06] MEDS ORDERED: Polyethylene Glycol 3350 17 GM Packet PO PRN (10:33)
[2021-10-06] MEDS ORDERED: Glycerin Adult Supp. (24 ct jar) PR SCH (10:45)
[2021-10-06] MEDS: traMADol HCl 50 MG TAB PO PRN (12:11)
[2021-10-07] MEDS ORDERED: Polyethylene Glycol 3350 17 GM Packet PO SCH (09:00)
== END 2021-10-06 14:07 | DRG 563 ==
LOC: ERS 10:10 → 2NO 19:25 → OBSVTOIN 09-30 09:23 → T4-B 10-03 20:07
PROVIDERS: ADMIT Internal Medicine; ATTEND Hospitalist
DX: S82.844A Nondisplaced bimalleolar fracture of right lower leg, initial encounter for closed fracture (principal); I50.22 Chronic systolic (congestive) heart failure; N17.9 Acute kidney failure, unspecified; I48.91 Unspecified atrial fibrillation; Z66 Do not resuscitate; Z20.822 Contact with and (suspected) exposure to COVID-19; S92.334A Nondisplaced fracture of third metatarsal bone, right foot, initial encounter for closed fracture; E03.9 Hypothyroidism, unspecified; E78.5 Hyperlipidemia, unspecified; I11.0 Hypertensive heart disease with heart failure; E66.9 Obesity, unspecified; E11.9 Type 2 diabetes mellitus without complications; M10.9 Gout, unspecified; F41.9 Anxiety disorder, unspecified; F32.A Depression, unspecified; I25.10 Atherosclerotic heart disease of native coronary artery without angina pectoris; W05.0XXA Fall from non-moving wheelchair, initial encounter; R29.6 Repeated falls; E86.0 Dehydration; R09.02 Hypoxemia; Z88.6 Allergy status to analgesic agent; Z88.2 Allergy status to sulfonamides; Z68.35 Body mass index [BMI] 35.0-35.9, adult; Z79.899 Other long term (current) drug therapy; Z79.890 Hormone replacement therapy; Z79.01 Long term (current) use of anticoagulants; Z90.710 Acquired absence of both cervix and uterus; Z98.890 Other specified postprocedural states; Z82.49 Family history of ischemic heart disease and other diseases of the circulatory system; Z90.81 Acquired absence of spleen; Z90.49 Acquired absence of other specified parts of digestive tract; Z99.3 Dependence on wheelchair; Z91.81 History of falling; Z95.5 Presence of coronary angioplasty implant and graft
CPT/HCPCS: 36415; 36416; 71045; 80048; 80053; 80061; 84439; 84443; 84481; 84484; 85025; 93005; 93306; 94760; 96365; 96375; 96376; J1940; J2270; J2405; J3010; J7120; Q0162; U0003; U0005

== ENCOUNTER 2022-06-20 09:07 | Inpatient (IN) | payer MEDICARE, BC ==
[2022-06-20 10:17] LABS: #Basophils 0.1 thou/uL (0.0-0.2); #Eosinphils 0.3 thou/uL (0.0-0.7); #Lymphocytes 2.8 thou/uL (1.20-3.40); #Monocytes 0.6 thou/uL (0.11-0.59); #Neutrophils 2.5 thou/uL (1.40-6.50); %Basophils 0.8 % (0.0-1.0); %Eosinophils 4.7 % (0.0-10.0); %Lymphocytes 44.5 % (21.0-51.0); %Monocytes 10.1 % (0.0-10.0); %Neutrophils 39.9 % (42.0-75.0); Mean Corpuscular HGB CONC 32.9 g/dL (32.0-36.0); Mean Corpuscular Hemoglobin 36.2 pg (27.0-31.0); Mean Platelet Volume 8.1 fL (7.4-10.4); Platelet Count 230 10x3/uL (130-400); RBC Distribution Width 12.5 % (11.5-14.5); White Blood Cell (WBC) Count 6.3 10x3/uL (4.8-10.8)
[2022-06-20 10:19] LABS: ALT (SGPT) 16 U/L (8-55); AST (SGOT) 21 U/L (5-34); Albumin 3.6 g/dL (3.4-4.8); Alkaline Phosphatase 59 U/L (40-110); Anion Gap 11 mmol/L (10-20); BUN (Urea Nitrogen) 38 mg/dL (9.8-20.1); Bilirubin, Total 1.2 mg/dL (0.2-1.2); Calc. Creatinine Clearance 0 mL/min (70-130); Calcium 9.9 mg/dL (7.8-10.44); Carbon Dioxide 26 mmol/L (23-31); Chloride 107 mmol/L (98-107); Estimated GFR 52; Globulin 2.7 g/dL (2.4-3.5); Glucose 110 mg/dL (83-110); Potassium 4.2 mmol/L (3.5-5.1); Protein, Total 6.3 g/dL (5.8-8.1); Sodium 140 mmol/L (136-145)
[2022-06-20 11:02] LABS: MDiff Complete? YES; Macrocytosis MODERATE=16-30 cells (100X) (0-5/hpf); Platelet Morphology Comment Appears Adequate; Polychromasia SLIGHT = 2-3 cells (100X) (0-2/hpf)
[2022-06-20] MEDS ORDERED: Nitroglycerin 0.4 MG TAB (25 Tab Bottle) SL PRN (12:16)
[2022-06-20] MEDS ORDERED: Acetaminophen 325 MG TAB PO PRN (12:17)
[2022-06-20 20:11] VITALS: BMI 32.1
[2022-06-20] MEDS ORDERED: Insulin Regular 300 UNITS/3 ML VIAL SC PRN ×3 (20:24)
[2022-06-20] MEDS ORDERED: Dextrose 50% Abboject 50 ML SYRINGE SLOW IVP PRN (20:24)
[2022-06-20] MEDS ORDERED: Dextrose 5% in Water 1,000 ML IV PRN (20:24)
[2022-06-20] MEDS: Apixaban 2.5 MG TAB PO SCH (21:13)
[2022-06-21 05:42] LABS: #Basophils 0.1 thou/uL (0.0-0.2); #Eosinphils 0.3 thou/uL (0.0-0.7); #Lymphocytes 2.4 thou/uL (1.20-3.40); #Monocytes 0.7 thou/uL (0.11-0.59); #Neutrophils 3.4 thou/uL (1.40-6.50); %Eosinophils 4.9 % (0.0-10.0); %Lymphocytes 34.7 % (21.0-51.0); %Monocytes 10.6 % (0.0-10.0); %Neutrophils 48.8 % (42.0-75.0); Hemoglobin 13.6 g/dL (12.0-16.0); Mean Corpuscular HGB CONC 33.5 g/dL (32.0-36.0); Mean Corpuscular Hemoglobin 36.5 pg (27.0-31.0); Mean Platelet Volume 7.9 fL (7.4-10.4); Platelet Count 217 10x3/uL (130-400); RBC Distribution Width 12.5 % (11.5-14.5); Red Blood Cell (RBC) Count 3.73 mill/uL (4.20-5.40); White Blood Cell (WBC) Count 6.9 10x3/uL (4.8-10.8)
[2022-06-21 06:05] LABS: Anion Gap 12 mmol/L (10-20); BUN (Urea Nitrogen) 34 mg/dL (9.8-20.1); Calc. Creatinine Clearance 65 mL/min (70-130); Calcium 10.4 mg/dL (7.8-10.44); Carbon Dioxide 23 mmol/L (23-31); Cardiac Risk 4.3 (Less than 4.5); Chloride 108 mmol/L (98-107); Cholesterol 153 mg/dl (< 200 Desired); Estimated GFR 63; Glucose 115 mg/dL (83-110); HDL Cholesterol 36 mg/dL (>60 Neg Risk); LDL Cholesterol, Calculated 91 mg/dL; Potassium 3.6 mmol/L (3.5-5.1); Sodium 139 mmol/L (136-145); Triglycerides 129 mg/dL (Less than 150)
[2022-06-21] MEDS: Levothyroxine Sodium 100 MCG TAB PO SCH (06:36)
[2022-06-21] MEDS: Apixaban 2.5 MG TAB PO SCH ×2 (08:16→20:36)
[2022-06-21] MEDS: Aspirin Chewable 81 MG TAB PO SCH (08:16)
[2022-06-21] MEDS ORDERED: Regadenoson 0.4 MG/5 ML SYRINGE ONE (09:03)
[2022-06-21] MEDS ORDERED: Polyethylene Glycol 3350 17 GM Packet PO PRN (14:10)
[2022-06-21] MEDS ORDERED: Bisacodyl 5 MG TAB PO PRN (14:10)
[2022-06-21] MEDS ORDERED: Artificial Tear Sol 15 ML BOT EA EYE PRN (15:06)
[2022-06-21] MEDS ORDERED: Potassium Chloride 20 MEQ TAB PO SCH (15:15)
[2022-06-21 15:19] LABS: Magnesium 2.2 mg/dL (1.6-2.6)
[2022-06-21] MEDS ORDERED: Magnesium 2 GM/50 ML(in water) 2 GM in Premix Bag 1 BAG IVPB SCH (15:30)
[2022-06-21] MEDS: Sotalol HCl 80 MG TAB PO SCH (20:36)
[2022-06-21] MEDS ORDERED: Rosuvastatin 20 MG TAB PO SCH (21:00)
[2022-06-22] MEDS: Levothyroxine Sodium 100 MCG TAB PO SCH (05:17)
[2022-06-22 05:50] LABS: Anion Gap 9 mmol/L (10-20); BUN (Urea Nitrogen) 31 mg/dL (9.8-20.1); Calc. Creatinine Clearance 66 mL/min (70-130); Calcium 10.3 mg/dL (7.8-10.44); Carbon Dioxide 22 mmol/L (23-31); Chloride 111 mmol/L (98-107); Estimated GFR 65; Glucose 91 mg/dL (83-110); Magnesium 2.2 mg/dL (1.6-2.6); Potassium 4.2 mmol/L (3.5-5.1); Sodium 138 mmol/L (136-145)
[2022-06-22] MEDS: Apixaban 2.5 MG TAB PO SCH (08:59)
[2022-06-22] MEDS: Aspirin Chewable 81 MG TAB PO SCH (08:59)
[2022-06-22] MEDS ORDERED: Allopurinol 100 MG TAB PO SCH (09:00)
[2022-06-22] MEDS ORDERED: Multivit, Therapeutic 1 TAB PO SCH (09:00)
[2022-06-22] MEDS ORDERED: Potassium Chloride 20 MEQ TAB PO SCH (09:00)
[2022-06-22] MEDS: Sotalol HCl 80 MG TAB PO SCH (09:00)
[2022-06-22] MEDS ORDERED: Empagliflozin 25 MG TAB PO SCH (09:00)
[2022-06-22 11:47] VITALS: BP 118/57; TEMP 97.4
== END 2022-06-22 13:39 | disposition home or self-care (01) | DRG 313 ==
LOC: ERS 09:07 → ERHOLD 11:42 → NEURO 19:38 → OBSVTOIN 06-21 16:12
PROVIDERS: ADMIT Internal Medicine; ATTEND Family Medicine
DX: R07.89 Other chest pain (principal); I47.20 Ventricular tachycardia, unspecified; I48.20 Chronic atrial fibrillation, unspecified; E78.5 Hyperlipidemia, unspecified; E03.9 Hypothyroidism, unspecified; E66.9 Obesity, unspecified; I50.9 Heart failure, unspecified; I25.10 Atherosclerotic heart disease of native coronary artery without angina pectoris; F32.A Depression, unspecified; F41.9 Anxiety disorder, unspecified; Z20.822 Contact with and (suspected) exposure to COVID-19; I11.0 Hypertensive heart disease with heart failure; Z88.2 Allergy status to sulfonamides; Z88.5 Allergy status to narcotic agent; Z79.899 Other long term (current) drug therapy; Z90.49 Acquired absence of other specified parts of digestive tract; Z90.710 Acquired absence of both cervix and uterus; Z90.81 Acquired absence of spleen; Z88.8 Allergy status to other drugs, medicaments and biological substances; Z79.01 Long term (current) use of anticoagulants; Z68.32 Body mass index [BMI] 32.0-32.9, adult
CPT/HCPCS: 36415; 70450; 71045; 78452; 80048; 80053; 80061; 83735; 84484; 85025; 93005; 93017; 94760; A9500; G0378; J2785; U0003; U0005

== ENCOUNTER 2022-07-01 09:58 | Inpatient (IN) | payer MEDICARE, BC ==
[2022-07-01] MEDS ORDERED: cefTRIAXone\\ROCEPHIN 2 GM VIAL ONE (10:48)
[2022-07-01] MEDS ORDERED: Azithromycin 250 MG TAB ONE (10:48)
[2022-07-01 11:06] LABS: #Eosinphils 0.1 thou/uL (0.0-0.7); #Lymphocytes 1.7 thou/uL (1.20-3.40); #Neutrophils 7.2 thou/uL (1.40-6.50); %Basophils 0.2 % (0.0-1.0); %Eosinophils 1.1 % (0.0-10.0); %Lymphocytes 17.3 % (21.0-51.0); %Monocytes 9.7 % (0.0-10.0); %Neutrophils 71.7 % (42.0-75.0); Hemoglobin 12.6 g/dL (12.0-16.0); Mean Corpuscular HGB CONC 32.3 g/dL (32.0-36.0); Mean Platelet Volume 8.6 fL (7.4-10.4); Platelet Count 208 10x3/uL (130-400); RBC Distribution Width 12.6 % (11.5-14.5); White Blood Cell (WBC) Count 10.1 10x3/uL (4.8-10.8)
[2022-07-01 11:22] LABS: INR-International Normal Ratio 1.4; PTT 29.1 sec (22.9-36.1); Prothrombin Time 17.8 sec (12.0-14.7)
[2022-07-01 11:28] LABS: ALT (SGPT) 36 U/L (8-55); AST (SGOT) 33 U/L (5-34); Albumin 3.4 g/dL (3.4-4.8); Alkaline Phosphatase 85 U/L (40-110); Anion Gap 14 mmol/L (10-20); BUN (Urea Nitrogen) 21 mg/dL (9.8-20.1); Bilirubin, Total 1.4 mg/dL (0.2-1.2); Calc. Creatinine Clearance 0 mL/min (70-130); Calcium 10.5 mg/dL (7.8-10.44); Carbon Dioxide 24 mmol/L (23-31); Chloride 110 mmol/L (98-107); Estimated GFR 74; Globulin 2.9 g/dL (2.4-3.5); Glucose 113 mg/dL (83-110); Magnesium 2.2 mg/dL (1.6-2.6); Potassium 4.5 mmol/L (3.5-5.1); Protein, Total 6.3 g/dL (5.8-8.1); Sodium 143 mmol/L (136-145)
[2022-07-01] MEDS ORDERED: Diltiazem 125 MG in Sodium Chloride 0.9% 100 ML IVPB SCH (12:15)
[2022-07-01] MEDS ORDERED: Diltiazem 125 MG/25 ML ONE (12:59)
[2022-07-01] MEDS ORDERED: Ondansetron PF 4 MG/2 ML Vial IVP PRN (13:54)
[2022-07-01 15:12] LABS: Troponin I 0.019 ng/mL (< 0.028)
[2022-07-01] MEDS ORDERED: Digoxin 0.5 MG/2 ML AMP ONE (15:12)
[2022-07-01 15:27] LABS: Free T4 (Free Thyroxine) 1.04 ng/dL (0.70-1.48); Thyroid Stimulating Hormone 1.4204 uIU/mL (0.35-4.94)
[2022-07-01 17:20] LABS: SARS-CoV-2 NAA Rapid Test Not Detected (NotDetected)
[2022-07-01 17:45] LABS: Legionella Urinary Ag Negative (Negative)
[2022-07-01] MEDS ORDERED: Acetaminophen 325 MG TAB ONE (18:02)
[2022-07-01] MEDS: Acetaminophen 325 MG TAB PO PRN (18:06)
[2022-07-01 18:28] LABS: Troponin I 0.012 ng/mL (< 0.028)
[2022-07-01 19:36] VITALS: BMI 31.4
[2022-07-02] MEDS: Levothyroxine Sodium 100 MCG TAB PO SCH (06:14)
[2022-07-02 06:43] LABS: Legionella Urinary Ag Negative (Negative); Strep pneumo Urine Ag NEGATIVE (NEGATIVE)
[2022-07-02] MEDS: Apixaban 5 MG TAB PO SCH ×2 (09:32→21:51)
[2022-07-02] MEDS: Acetaminophen 325 MG TAB PO PRN ×2 (10:33→21:51)
[2022-07-02] MEDS: cefTRIAXone\\ROCEPHIN 1 GM in Sodium Chloride 0.9% 100 ML IVPB SCH (11:21)
[2022-07-02] MEDS ORDERED: Pantoprazole 40 MG VIAL IVP SCH (11:30)
[2022-07-02] MEDS: Azithromycin 500 MG in Sodium Chloride 0.9% 250 ML 250 ML IVPB SCH (12:09)
[2022-07-03] MEDS: Levothyroxine Sodium 100 MCG TAB PO SCH (05:11)
[2022-07-03] MEDS ORDERED: Pantoprazole 40 MG VIAL IVP SCH (09:00)
[2022-07-03] MEDS: Apixaban 5 MG TAB PO SCH ×2 (09:34→20:28)
[2022-07-03] MEDS: Azithromycin 500 MG in Sodium Chloride 0.9% 250 ML 250 ML IVPB SCH (12:25)
[2022-07-03] MEDS: cefTRIAXone\\ROCEPHIN 1 GM in Sodium Chloride 0.9% 100 ML IVPB SCH (13:01)
[2022-07-03] MEDS ORDERED: Polyethylene Glycol 3350 17 GM Packet PO PRN (14:20)
[2022-07-03] MEDS ORDERED: Artificial Tear Sol 15 ML BOT EA EYE PRN (14:31)
[2022-07-03] MEDS: traZODone HCl 50 MG TAB PO SCH (20:28)
[2022-07-03] MEDS: Rosuvastatin 20 MG TAB PO SCH (20:28)
[2022-07-03] MEDS: Acetaminophen 325 MG TAB PO PRN (20:29)
[2022-07-04] MEDS: Levothyroxine Sodium 100 MCG TAB PO SCH (05:34)
[2022-07-04] MEDS: Acetaminophen 325 MG TAB PO PRN ×2 (07:14→18:15)
[2022-07-04] MEDS: Allopurinol 100 MG TAB PO SCH (08:45)
[2022-07-04] MEDS: Apixaban 5 MG TAB PO SCH (08:45)
[2022-07-04] MEDS: Sertraline 100 MG TAB PO SCH (08:45)
[2022-07-04] MEDS: Empagliflozin 25 MG TAB PO SCH (08:53)
[2022-07-04] MEDS: Azithromycin 500 MG in Sodium Chloride 0.9% 250 ML 250 ML IVPB SCH (12:23)
[2022-07-04] MEDS: cefTRIAXone\\ROCEPHIN 1 GM in Sodium Chloride 0.9% 100 ML IVPB SCH (12:23)
[2022-07-04] MEDS ORDERED: Communication Order-Pharmacy FS ONE (14:32)
[2022-07-04 15:05] LABS: Hemoglobin 12.1 g/dL (12.0-16.0); Platelet Count 205 10x3/uL (130-400)
[2022-07-04] MEDS: traZODone HCl 50 MG TAB PO SCH (20:29)
[2022-07-04] MEDS: Rosuvastatin 20 MG TAB PO SCH (20:29)
[2022-07-05] MEDS: Levothyroxine Sodium 100 MCG TAB PO SCH (05:17)
[2022-07-05] MEDS: Acetaminophen 325 MG TAB PO PRN ×2 (09:18→20:36)
[2022-07-05] MEDS: Allopurinol 100 MG TAB PO SCH (09:19)
[2022-07-05] MEDS: Empagliflozin 25 MG TAB PO SCH (09:19)
[2022-07-05] MEDS: Sertraline 100 MG TAB PO SCH (09:19)
[2022-07-05] MEDS: Azithromycin 500 MG in Sodium Chloride 0.9% 250 ML 250 ML IVPB SCH ×2 (11:37→12:37)
[2022-07-05] MEDS: cefTRIAXone\\ROCEPHIN 1 GM in Sodium Chloride 0.9% 100 ML IVPB SCH (12:38)
[2022-07-05] MEDS ORDERED: Cefdinir 300 MG CAP PO SCH (12:45)
[2022-07-05] MEDS: Azithromycin 250 MG TAB PO SCH (13:18)
[2022-07-05] MEDS: traZODone HCl 50 MG TAB PO SCH (20:36)
[2022-07-05] MEDS: Cefdinir 300 MG CAP PO SCH (20:36)
[2022-07-05] MEDS: Rosuvastatin 20 MG TAB PO SCH (20:36)
[2022-07-06] MEDS: Levothyroxine Sodium 100 MCG TAB PO SCH (05:55)
[2022-07-06] MEDS: Allopurinol 100 MG TAB PO SCH (10:05)
[2022-07-06] MEDS: Cefdinir 300 MG CAP PO SCH ×2 (10:06→21:14)
[2022-07-06] MEDS: Sertraline 100 MG TAB PO SCH (10:06)
[2022-07-06] MEDS: Empagliflozin 25 MG TAB PO SCH (10:06)
[2022-07-06] MEDS: Azithromycin 250 MG TAB PO SCH (13:15)
[2022-07-06] MEDS: Rosuvastatin 20 MG TAB PO SCH (21:14)
[2022-07-06] MEDS: traZODone HCl 50 MG TAB PO SCH (21:14)
[2022-07-06] MEDS: Acetaminophen 325 MG TAB PO PRN (21:15)
[2022-07-07 04:36] LABS: Hemoglobin 11.8 g/dL (12.0-16.0); Platelet Count 221 10x3/uL (130-400)
[2022-07-07 04:58] LABS: Anion Gap 9 mmol/L (10-20); BUN (Urea Nitrogen) 15 mg/dL (9.8-20.1); Calc. Creatinine Clearance 82 mL/min (70-130); Calcium 9.7 mg/dL (7.8-10.44); Carbon Dioxide 26 mmol/L (23-31); Chloride 110 mmol/L (98-107); Estimated GFR 83; Glucose 84 mg/dL (83-110); Potassium 3.8 mmol/L (3.5-5.1); Sodium 141 mmol/L (136-145)
[2022-07-07] MEDS: Levothyroxine Sodium 100 MCG TAB PO SCH (06:17)
[2022-07-07] MEDS ORDERED: Vancomycin 1.5 GRAM/300 ML BAG IVPB ONE (06:30)
[2022-07-07] MEDS ORDERED: Vancomycin 1.5 GRAM/300 ML BAG 1.5 GM in Premix Bag 1 BAG IVPB SCH (06:30)
[2022-07-07 07:04] LABS: SARS-CoV-2 NAA Rapid Test Not Detected (NotDetected)
[2022-07-07] MEDS: Empagliflozin 25 MG TAB PO SCH (08:14)
[2022-07-07] MEDS: Sertraline 100 MG TAB PO SCH (08:14)
[2022-07-07] MEDS: Allopurinol 100 MG TAB PO SCH (08:14)
[2022-07-07] MEDS ORDERED: Lidocaine 1% (PF) 30 ML VIAL ONE ×2 (09:32→13:04)
[2022-07-07] MEDS ORDERED: CEFAZOLIN 1 GM VIAL ONE (09:32)
[2022-07-07] MEDS ORDERED: Gentamicin 80 MG/2 ML VIAL ONE (09:32)
[2022-07-07] MEDS ORDERED: fentaNYL PF 100 MCG/2 ML SYRINGE ONE (10:13)
[2022-07-07] MEDS ORDERED: Dexmedetomidine 200 MCG/2 ML VIAL ONE (10:13)
[2022-07-07] MEDS ORDERED: Midazolam HCl 2 mg/2 ml Vial ONE (10:27)
[2022-07-07] MEDS ORDERED: Iopamidol 370 76% 100 ML VIAL ONE (12:23)
[2022-07-07] MEDS: Acetaminophen 325 MG TAB PO PRN (14:44)
[2022-07-07] MEDS: Rosuvastatin 20 MG TAB PO SCH (20:11)
[2022-07-07] MEDS: Sotalol HCl 80 MG TAB PO SCH (20:11)
[2022-07-07] MEDS: traZODone HCl 50 MG TAB PO SCH (20:11)
[2022-07-08] MEDS: Acetaminophen 325 MG TAB PO PRN ×4 (00:20→17:28)
[2022-07-08] MEDS: Levothyroxine Sodium 100 MCG TAB PO SCH (05:08)
[2022-07-08] MEDS: Sertraline 100 MG TAB PO SCH (09:31)
[2022-07-08] MEDS: Allopurinol 100 MG TAB PO SCH (09:31)
[2022-07-08] MEDS: Sotalol HCl 80 MG TAB PO SCH ×2 (09:40→20:27)
[2022-07-08] MEDS: Empagliflozin 25 MG TAB PO SCH (09:45)
[2022-07-08] MEDS: Rosuvastatin 20 MG TAB PO SCH (20:27)
[2022-07-08] MEDS: traZODone HCl 50 MG TAB PO SCH (20:28)
[2022-07-09] MEDS: Levothyroxine Sodium 100 MCG TAB PO SCH (05:28)
[2022-07-09] MEDS: Empagliflozin 25 MG TAB PO SCH (09:14)
[2022-07-09] MEDS: Allopurinol 100 MG TAB PO SCH (09:14)
[2022-07-09] MEDS: Sotalol HCl 80 MG TAB PO SCH ×2 (09:15→20:56)
[2022-07-09] MEDS: Sertraline 100 MG TAB PO SCH (09:15)
[2022-07-09] MEDS: Acetaminophen 325 MG TAB PO PRN ×2 (11:38→20:56)
[2022-07-09] MEDS: traZODone HCl 50 MG TAB PO SCH (20:56)
[2022-07-09] MEDS: Rosuvastatin 20 MG TAB PO SCH (20:57)
[2022-07-10 04:44] LABS: Hemoglobin 12.2 g/dL (12.0-16.0); Platelet Count 238 10x3/uL (130-400)
[2022-07-10] MEDS: Levothyroxine Sodium 100 MCG TAB PO SCH (06:07)
[2022-07-10] MEDS: Sertraline 100 MG TAB PO SCH (08:21)
[2022-07-10] MEDS: Sotalol HCl 80 MG TAB PO SCH (08:21)
[2022-07-10] MEDS: Empagliflozin 25 MG TAB PO SCH (08:21)
[2022-07-10] MEDS: Allopurinol 100 MG TAB PO SCH (08:21)
[2022-07-10 12:04] VITALS: BP 152/68; TEMP 97.5
== END 2022-07-10 15:27 | disposition home health service (06) | DRG 242 ==
LOC: ERS 09:58 → ERHOLD 13:58 → 2NO 19:14
PROVIDERS: ADMIT Internal Medicine; ATTEND Internal Medicine
PROC: 0JH607Z Insertion of Cardiac Resynchronization Pacemaker Pulse Generator into Chest Subcutaneous Tissue and Fascia, Open Approach (ICD-10-PCS; principal; 2022-07-07)
PROC: 02HK3JZ Insertion of Pacemaker Lead into Right Ventricle, Percutaneous Approach (ICD-10-PCS; 2022-07-07)
PROC: 02HL3JZ Insertion of Pacemaker Lead into Left Ventricle, Percutaneous Approach (ICD-10-PCS; 2022-07-07)
PROC: 02H63JZ Insertion of Pacemaker Lead into Right Atrium, Percutaneous Approach (ICD-10-PCS; 2022-07-07)
DX: I49.5 Sick sinus syndrome (principal); J18.9 Pneumonia, unspecified organism; J96.01 Acute respiratory failure with hypoxia; I50.22 Chronic systolic (congestive) heart failure; I13.0 Hypertensive heart and chronic kidney disease with heart failure and stage 1 through stage 4 chronic kidney disease, or unspecified chronic kidney disease; I48.91 Unspecified atrial fibrillation; F41.9 Anxiety disorder, unspecified; F32.A Depression, unspecified; E03.9 Hypothyroidism, unspecified; I35.0 Nonrheumatic aortic (valve) stenosis; N18.30 Chronic kidney disease, stage 3 unspecified; I25.10 Atherosclerotic heart disease of native coronary artery without angina pectoris; E66.9 Obesity, unspecified; E78.5 Hyperlipidemia, unspecified; M10.9 Gout, unspecified; Z20.822 Contact with and (suspected) exposure to COVID-19; Z82.49 Family history of ischemic heart disease and other diseases of the circulatory system; Z98.890 Other specified postprocedural states; Z79.01 Long term (current) use of anticoagulants; Z88.2 Allergy status to sulfonamides; Z88.8 Allergy status to other drugs, medicaments and biological substances; Z95.5 Presence of coronary angioplasty implant and graft; Z79.890 Hormone replacement therapy; Z90.710 Acquired absence of both cervix and uterus; Z79.899 Other long term (current) drug therapy; Z79.82 Long term (current) use of aspirin
CPT/HCPCS: 33208; 33225; 36415; 71045; 80048; 80053; 83605; 83735; 83880; 84439; 84443; 84481; 84484; 85014; 85018; 85025; 85049; 85610; 85730; 87040; 87449; 87899; 93005; 93010; 93306; 94760; 96365; 96366; 96367; 96375; C1769; C1894; C1898; C1900; C2621; C9113; J0456; J0690; J0696; J1160; J1580; J1650; J2001; J2250; J3370; J3490; J7050; Q9967; U0002